=== PATIENT | female | born 1990 | race Hispanic/Latino ===

== ENCOUNTER 2020-02-12 01:43 | Emergency (ER) | payer OTHER ==
[2020-02-12] MEDS ORDERED: Sucralfate 1 GM TAB ONE (03:18)
[2020-02-12] MEDS ORDERED: Lidocaine Viscous Sol 2% 15 ml UD Cup ONE (03:29)
[2020-02-12] MEDS ORDERED: Mag-Al Plus 1200 MG/1200 MG/120 MG/30 ML UDCUP ONE (03:29)
== END 2020-02-12 04:00 | disposition home or self-care (01) ==
LOC: MADERS 01:43
DX: O99.613 Diseases of the digestive system complicating pregnancy, third trimester (principal); K21.9 Gastro-esophageal reflux disease without esophagitis; Z3A.32 32 weeks gestation of pregnancy
CPT/HCPCS: 93005

== ENCOUNTER 2020-04-14 13:56 | Outpatient (CLI) | payer OTHER ==
--- NOTE | 2020-04-14 14:18 | RAD ---
EXAM: Chest 2 views: HISTORY: Pneumonia COMPARISON: None. FINDINGS: There is a normal-sized cardiomediastinal silhouette. There are diffuse scattered mixed infiltrates i n the lungs. No pleural effusion is seen. The bones are unremarkable. IMPRESSION: Scattered mixed multifocal infiltrates
== END 2020-04-14 13:57 | disposition home or self-care (01) ==
LOC: MADRAD 13:56
PROVIDERS: ATTEND Family Medicine
DX: J18.9 Pneumonia, unspecified organism (principal); R91.8 Other nonspecific abnormal finding of lung field
CPT/HCPCS: 71046

== ENCOUNTER 2020-05-27 11:04 | Outpatient (CLI) | payer OTHER ==
--- NOTE | 2020-05-27 11:29 | RAD ---
EXAM: CHEST TWO VIEWS 05/27/2020 11:26 AM HISTORY: 29-year-old female with history of pulmonary emboli COMPARISON: Chest 2 views dated April 14, 2020 FINDINGS: Lungs: There is bilateral reticular nodular opacities affecting both lower lobes. The scattered airs pace opacity within both lungs on the prior exam has mildly improved. Heart: Normal in size and contour. Pulmonary Vessels: Normal. Costophrenic Angles: Clear. Pneumothorax: None. Osseous Structures: Mild thoracic spinal curvature is stable. No acute fracture is evident. Additional Findings: None. IMPRESSION: Bilateral reticular nodular opacities within both lower lobes may reflect a bronchiolitis. Aspiration could have a similar appearance. Recommend correlation.
[2020-05-27 11:38] LABS: Anion Gap 15 mmol/L (10-20); BUN (Urea Nitrogen) 7 mg/dL (7.0-18.7); Calc. Creatinine Clearance 0 mL/min (70-130); Calcium 9.1 mg/dL (7.8-10.44); Carbon Dioxide 21 mmol/L (22-29); Chloride 109 mmol/L (98-107); Estimated GFR-MDRD Greater than 90; Glucose 92 mg/dL (70-105); Sodium 141 mmol/L (136-145)
[2020-05-27 12:22] LABS: Large Platelets SLIGHT; Lymphocytes 11 % (21-51); MDiff Complete? YES; Mean Corpuscular HGB CONC 30.8 g/dL (32.0-36.0); Mean Corpuscular Hemoglobin 27.1 pg (27.0-31.0); Mean Platelet Volume 11.8 fL (7.4-10.4); Monocytes 4 % (0-10); Neutrophil 41 % (42-75); Platelet Count 213 thou/uL (130-400); Platelet Morphology Comment Appears Adequate; RBC Distribution Width 15.3 % (11.5-14.5); RBC Morphology Normal; Reactive Lymphocytes 44 % (0-10); Red Blood Cell (RBC) Count 4.43 mill/uL (4.20-5.40); Reflex for Review?? NO; White Blood Cell (WBC) Count 4.7 thou/uL (4.8-10.8)
== END 2020-05-27 11:05 | disposition home or self-care (01) ==
LOC: MADRAD 11:04 → MADLAB 11:05
PROVIDERS: ATTEND Family Medicine
DX: I26.99 Other pulmonary embolism without acute cor pulmonale (principal); I10 Essential (primary) hypertension; R91.8 Other nonspecific abnormal finding of lung field
CPT/HCPCS: 36415; 71046; 80048; 85025

== ENCOUNTER 2020-07-01 11:46 | Outpatient (CLI) | payer OTHER ==
[2020-07-01 13:51] LABS: Band 1 % (5-11); Hemoglobin 13.4 g/dL (12.0-16.0); Lymphocytes 45 % (21-51); MDiff Complete? YES; Mean Corpuscular HGB CONC 31.7 g/dL (32.0-36.0); Mean Corpuscular Hemoglobin 28.6 pg (27.0-31.0); Mean Platelet Volume 9.7 fL (7.4-10.4); Monocytes 6 % (0-10); Neutrophil 47 % (42-75); Platelet Count 157 thou/uL (130-400); Platelet Morphology Comment Appears Adequate; RBC Distribution Width 14.6 % (11.5-14.5); Red Blood Cell (RBC) Count 4.69 mill/uL (4.20-5.40); White Blood Cell (WBC) Count 5.9 thou/uL (4.8-10.8)
--- NOTE | 2020-07-01 16:27 | RAD ---
TWO VIEWS CHEST: 07/01/20 PROVIDED CLINICAL HISTORY: Pulmonary emboli. FINDINGS: Comparison is made with a study dated 05/27/20. Cardiac and mediastinal silhouette is within normal limits. No focal consolidation, pleural fluid or pneumothorax apparent. IMPRESSION: No evidence for an acute cardiopulmonary process. POS: [facility]
== END 2020-07-01 11:47 | disposition home or self-care (01) ==
LOC: MADRAD 11:46 → MADLAB 11:47
PROVIDERS: ATTEND Family Medicine
DX: I26.99 Other pulmonary embolism without acute cor pulmonale (principal); D64.9 Anemia, unspecified
CPT/HCPCS: 36415; 71046; 85025